=== PATIENT | female | born 1960 | race Caucasian/White ===

== ENCOUNTER 2021-06-21 06:49 | Day surgery (SDC) | payer BC ==
[2021-06-21] MEDS ORDERED: LIDOCAINE HCL 2% 100 MG/5 ML IJ ONE (06:50)
[2021-06-21] MEDS ORDERED: DIPRIVAN 200 MG/20 ML IV ONE (08:53)
[2021-06-21] MEDS ORDERED: Lactated Ringers 1,000 ML IV ONE (09:14)
--- NOTE | 2021-06-21 10:07 | XRAY ---
Indication: Bilateral L4-S1 MBB. Intraoperative fluoroscopy provided for 36 seconds. Single digital spot image submitted for interpretation demonstrate posterior needle tips projecting over the expected left and right L4-S1 nerve roots. Correlate with intraoperative findings/report.
--- NOTE | 2021-06-21 10:11 | XRAY ---
36 seconds fluoroscopy time in surgery for bilateral L4-S1 MBB.
== END 2021-06-21 09:20 | disposition home or self-care (01) ==
LOC: SDC-PAIN 06:49
PROVIDERS: ATTEND Psychiatry & Neurology Pain Medicine
DX: M47.816 Spondylosis without myelopathy or radiculopathy, lumbar region (principal); E11.9 Type 2 diabetes mellitus without complications; Z79.899 Other long term (current) drug therapy
CPT/HCPCS: 64493; 64494; 72020; 77002; 82947; J2704

== ENCOUNTER 2021-07-27 06:41 | Day surgery (SDC) | payer BC ==
[2021-07-27] MEDS ORDERED: BUPIVACAINE 0.5% VIAL IJ ONE (06:42)
[2021-07-27] MEDS ORDERED: Lactated Ringers 1,000 ML IV ONE (08:18)
[2021-07-27] MEDS ORDERED: DIPRIVAN 200 MG/20 ML IV ONE (08:47)
--- NOTE | 2021-07-27 10:15 | XRAY ---
Indication: Bilateral L4-S1 MBB. Intraoperative fluoroscopy provided for 12 seconds. Single digital spot image submitted for interpretation demonstrates posterior needle tips projecting over the expected left and right L4-S1 nerve roots. Correlate with intraoperative findings/report.
--- NOTE | 2021-07-27 11:05 | XRAY ---
12 seconds fluoroscopy time in surgery for bilateral L4-S1 MBB.
== END 2021-07-27 09:16 | disposition home or self-care (01) ==
LOC: SDC-PAIN 06:41
PROVIDERS: ATTEND Psychiatry & Neurology Pain Medicine
DX: M54.16 Radiculopathy, lumbar region (principal); M70.61 Trochanteric bursitis, right hip; E11.9 Type 2 diabetes mellitus without complications; Z79.899 Other long term (current) drug therapy
CPT/HCPCS: 64493; 64494; 72020; 77002; 82947; J2704

== ENCOUNTER 2021-09-13 13:12 | Day surgery (SDC) | payer BC ==
[2021-09-13] MEDS ORDERED: Marcaine Mpf 0.5% Vial 30 Ml IJ ONE (13:13)
[2021-09-13] MEDS ORDERED: Depo-Medrol 40 MG/ML IM ONE (13:13)
[2021-09-13] MEDS ORDERED: XYLOCAINE-MPF 1% 5ML SDV IJ ONE (13:13)
[2021-09-13] MEDS ORDERED: DIPRIVAN 200 MG/20 ML IV ONE (14:32)
--- NOTE | 2021-09-13 15:07 | XRAY ---
Indication: Right L4-S1 RFA. Intraoperative fluoroscopy provided for 28 seconds. 3 digital spot image submitted for interpretation demonstrates posterior needle tips projecting over the expected right L4-S1 nerve roots. Correlate with intraoperative findings/report.
[2021-09-13] MEDS ORDERED: Lactated Ringers 1,000 ML IV ONE (15:09)
--- NOTE | 2021-09-13 16:01 | XRAY ---
28 seconds of fluoroscopy was used in surgery for a right L4-S1 RFA.
== END 2021-09-13 15:02 | disposition home or self-care (01) ==
LOC: SDC-PAIN 13:12
PROVIDERS: ATTEND Psychiatry & Neurology Pain Medicine
DX: M47.816 Spondylosis without myelopathy or radiculopathy, lumbar region (principal); E11.9 Type 2 diabetes mellitus without complications; Z79.899 Other long term (current) drug therapy
CPT/HCPCS: 64635; 64636; 72100; 77002; 82947; J1030; J2704

== ENCOUNTER 2021-09-27 06:51 | Day surgery (SDC) | payer BC ==
[2021-09-27] MEDS ORDERED: Marcaine Mpf 0.5% Vial 30 Ml IJ ONE (06:52)
[2021-09-27] MEDS ORDERED: Xylocaine 1% Vial 30 ML PF IJ ONE (06:52)
[2021-09-27] MEDS ORDERED: Depo-Medrol 40 MG/ML IM ONE (06:52)
[2021-09-27] MEDS ORDERED: DIPRIVAN 200 MG/20 ML IV ONE (08:00)
[2021-09-27] MEDS ORDERED: Lactated Ringers 1,000 ML IV ONE (09:14)
--- NOTE | 2021-09-27 09:35 | XRAY ---
Indication: Left L4-S1 RFA. Intraoperative fluoroscopy provided for 35 seconds. 3 digital spot image submitted for interpretation demonstrates posterior needle tips projecting over the expected left L4-S1 nerve roots. Correlate with intraoperative findings/report.
--- NOTE | 2021-09-27 10:47 | XRAY ---
35 seconds fluoroscopy time in surgery for left L4-S1 RFA.
== END 2021-09-27 08:33 | disposition home or self-care (01) ==
LOC: SDC-PAIN 06:51
PROVIDERS: ATTEND Psychiatry & Neurology Pain Medicine
DX: M47.816 Spondylosis without myelopathy or radiculopathy, lumbar region (principal); E11.9 Type 2 diabetes mellitus without complications; Z79.899 Other long term (current) drug therapy
CPT/HCPCS: 64635; 64636; 72100; 77002; 82947; J1030; J2001; J2704

== ENCOUNTER 2021-09-28 21:51 | Emergency (ER) | payer BC ==
[2021-09-28 22:27] VITALS: BP 145/74; O2SAT 97
[2021-09-28] MEDS ORDERED: TORAdol 30 mg Injection IM ONE (22:54)
[2021-09-28] MEDS ORDERED: Norflex 60 MG/2 ML IM ONE (22:55)
[2021-09-28] MEDS ORDERED: TORAdol 30 mg Injection ONE (23:00)
[2021-09-28] MEDS ORDERED: Norflex 60 MG/2 ML ONE (23:00)
--- NOTE | 2021-09-28 23:00 | ERPHSYRPT ---
- History of Present Illness Time Seen by Provider: 09/28/21 22:21 Source: patient Exam Limitations: no limitations Patient Subjective Stated Complaint: pt states she had hip pain since last saturday following a nerve ablation in r hip, then same procedure on l hip yesterday, has gotten worse today pain is 10/10 in r hip Triage Nursing Assessment: pt is alert and oriented, sitting up on side of bed unable to sit due to pain in r hip Physician History: 61-year-old female with history of chronic back pain status post nerve ablation 1 on the right side 2 weeks ago and on the left done yesterday. Patient reports she walked for almost 10 minutes and seemed like she pulled something on the right lower back with some radiation to the right buttock, got worse since yesterday, sharp shooting, more with movements and better with resting without any numbness tingling weakness of right lower extremity or loss of bowel or bladder control/perineal numbness. Reports having difficulty ambulation at her baseline and because of pain is getting worse. She has taken Fioricet and muscle relaxant prior to arrival with no significant relief. No fall or trauma reported. Pain is similar to previous before getting ablation done. Timing/Duration: yesterday, worse Back Pain Location: lumbar spine, paraspinous muscles Back Pain Radiation: buttocks Severity of Pain-Max: severe Severity of Pain-Current: severe Modifying Factors: Improves With: immobilization. Worsens With: movement Associated Symptoms: lower back pain, muscle spasms, No urinary incontinence, No loss of bowel control, No constipation, No problems urinating, No numbness in legs/feet, No sensory/motor loss, No tingling in legs/feet Previous symptoms: same symptoms as today Allergies/Adverse Reactions: erythromycin base Allergy (Verified 09/28/21 22:29) Sulfa (Sulfonamide Antibiotics) Allergy (Verified 09/28/21 22:29) vicoden Allergy (Uncoded 09/28/21 22:29) Hx Influenza Vaccination/Date Given: Yes Hx Pneumococcal Vaccination/Date Given: Yes Travel Risk - International Travel Have you traveled outside of the country in past 3 weeks: No - Coronavirus Screening Are you exhibiting any of the following symptoms?: No Close contact with a COVID-19 positive Pt in past 14-21 Days: No - Vaccine Status Have you recieved a Covid-19 vaccination: Yes [employer]: Moderna - Vaccination Dates Date of 2cond Vaccination (if applicable): unknown - Review of Systems Constitutional: No Symptoms Ears, Nose, & Throat: No Symptoms Respiratory: No Symptoms Cardiac: No Symptoms Abdominal/Gastrointestinal: No Symptoms Genitourinary Symptoms: No Symptoms Musculoskeletal: Arthralgias, Back Pain Skin: No Symptoms Neurological: No Symptoms Psychological: No Symptoms Endocrine: No Symptoms Hematologic/Lymphatic: No Symptoms Immunological/Allergic: No Symptoms - Past Medical History Pertinent Past Medical History: Yes Other Medical History: hysterectomy, , chemo, radiation 2020, covid in 2020 - Past Surgical History Past Surgical History: Yes Other Surgical History: hip replacemnt, l knee repair. lumpectomy in 2019, r shoulder repair - Social History Smoking Status: Never smoker Exposure to second hand smoke: No Drug Use: none - Nursing Vital Signs Nursing Vital Signs: Initial Vital Signs Temperature 98.0 F 09/28/21 22:17 Pulse Rate 71 09/28/21 22:17 Respiratory Rate 18 09/28/21 22:17 Blood Pressure 145/74 09/28/21 22:17 O2 Sat by Pulse Oximetry 97 09/28/21 22:17 Pain Scale Pain Intensity 10 - Physical Exam General Appearance: no apparent distress, alert Eye Exam: PERRL/EOMI Neck Exam: normal inspection, supple, full range of motion Respiratory Exam: normal breath sounds, lungs clear Cardiovascular Exam: regular rate/rhythm, normal heart sounds Gastrointestinal Exam: soft, normal bowel sounds, tenderness, No guarding Back Exam: normal inspection, vertebral tenderness, decreased range of motion, muscle spasm, point tenderness (Lower lumbar/sacroiliac area across more on the right side) Extremity Exam: normal inspection, normal range of motion, pelvis stable Neurologic Exam: alert, oriented x 3, cooperative, sensation nml, other, No motor deficits Skin Exam: normal color SpO2 Interpretation: normal SpO2: 97 O2 Delivery: Room Air - Progress Progress: improved, re-examined Progress Note: 09/28/21 she is given Norflex and Toradol, on reevaluation feeling much better and is able to ambulate better. Negative neuro exam in lower extremity for cauda equina. Recommended outpatient follow-up with pain management in the morning. Discussed signs symptoms of worsening needing return to ER which she seems understanding. Counseled pt/family regarding: diagnosis, need for follow-up - Departure Departure Disposition: Home Clinical Impression: Acute exacerbation of chronic low back pain Condition: Stable Critical Care Time: No Referrals: MARCO LAWLER NP [Primary Care Provider] - Follow up/PCP as directed (1-2 days for reevaluation) JHOANA NETTLES MD [CONSULTING PHYSICIAN] - Follow up/PCP as directed (Tomorrow for reevaluation) Instructions: Cauda Equina Syndrome, Low Back Pain (DC) Additional Instructions: Follow-up with pain management/primary care for reevaluation in the morning. R eturn to ER for worsening pain, numbness tingling weakness of lower extremities/loss of bowel or bladder control etc.
[2021-09-28 23:23] VITALS: PULSE 78
== END 2021-09-29 00:10 | disposition home or self-care (01) ==
LOC: ED 21:51
DX: G89.29 Other chronic pain (principal); M54.50 Low back pain, unspecified; Z86.16 Personal history of COVID-19
CPT/HCPCS: 96372; 99284; J1885; J2360